=== PATIENT | female | born 2000 | race Caucasian/White ===

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

== ENCOUNTER 2020-02-06 18:35 | Emergency (ER) | payer OTHER ==
[~2020-02-06] VITALS: Ht 165.1 cm; Wt 70.3 kg
[~2020-02-06 18:35] MED LIST changes: +BIRTH CONTROL PO
[2020-02-06 20:45] LABS: ABSOLUTE EOSINOPHILS 0.1 thou/uL (0.0-0.7); ABSOLUTE LYMPHOCYTES 1.9 thou/uL (0.8-5.3); ABSOLUTE MONOCYTES 0.6 thou/uL (0.0-1.2); ABSOLUTE NEUTROPHILS 5.7 thou/uL (1.6-8.1); BASOPHILS 0.4 %; HEMOGLOBIN 14.1 gm/dL (12.0-15.0); LYMPHOCYTES 22.9 %; MCHC 33.6 g/dL (28.0-37.0); MCV 86.3 fL (80.0-100.0); MONOCYTES 7.2 %; MPV 9.2 fl. (7.2-11.1); NUCLEATED RBCS 0 /100WBC; PLATELET COUNT* 169 thou/uL (150-400); POLYS 68.5 %; RBC 4.86 mil/uL (4.20-5.00); RDW-CV 19.5 % (10.5-14.5); WBC 8.4 thou/uL (4.0-11.0)
[2020-02-06 20:50] LABS: CALCIUM 8.9 mg/dL (8.5-10.1); CREATININE 0.9 mg/dL (0.6-1.3); POTASSIUM 3.9 mmol/L (3.5-5.1)
[2020-02-06] MEDS ORDERED: KEFLEX500 M1 PO (21:50)
[2020-02-06] MEDS ORDERED: BACTRIM DS TAB1 EACH PO (21:50)
[2020-02-06 21:51] LABS: ANISOCYTOSIS 1+; OVALOCYTES 1+; PLATELET ESTIMATE ADEQUATE
[2020-02-06 21:53] LABS: SCHISTOCYTES Occasional
[2020-02-06] MEDS ORDERED: NORCO 5-325 TA1 EAC2 PO (22:22)
[2020-02-06 22:34] VITALS: BP 140/84
== END 2020-02-06 22:35 | disposition home or self-care (01) ==
LOC: M.ERS 18:35
PROVIDERS: Nurse Practitioner Family
DX: N61.1 Abscess of the breast and nipple (principal); Z88.6 Allergy status to analgesic agent

== ENCOUNTER → 2020-02-09 | Outpatient (CLI) | payer OTHER ==
[~2020-02-09] MED LIST changes: +BACTRIM DS TAB1 EACH PO; +KEFLEX500 M1 PO; +NORCO 5-325 TA1 EAC2 PO
== END ==
LOC: M.ULTRA 09:00
PROVIDERS: ATTEND Nurse Practitioner Women's Health
DX: N61.1 Abscess of the breast and nipple (principal)